=== PATIENT | female | born 1985 | race Caucasian/White ===

== ENCOUNTER 2019-03-09 12:39 | Emergency (ER) | payer MEDICAID, OTHER ==
[2019-03-09 12:40] VITALS: BMI 24.5
--- NOTE | 2019-03-09 12:58 | ED PDOC ---
HPI: Female Pain Time Seen by Provider: 03/09/19 12:52 Chief Complaint (Nursing): Female Genitourinary History Per: Patient Onset/Duration Of Symptoms: Days (1) Additional Complaint(s): Referred from clinic to r/o possible ectopic . Pt denies abd pain. No vaginal bleeding. H/o ectopic 2001. LMP 5 weeks ago Abnormal Vaginal Bleeding: No Past Medical History Vital Signs: Last Vital Signs Temp 98.2 F 03/09/19 12:47 Pulse 102 H 03/09/19 12:47 Resp 19 03/09/19 12:47 BP 162/127 H 03/09/19 12:47 Pulse Ox 98 03/09/19 12:47 Primary Care Provider: Christiano Romo - Medical History PMH: Anxiety, HTN Denies: Chronic Kidney Disease Other PMH: Ectopic - Family History Family History: States: Unknown Family Hx - Home Medications Home Medications: Ambulatory Orders Medication Instructions Recorded Acetaminophen [Tylenol] 650 mg PO Q6 PRN #40 tab 12/11/14 Azithromycin [Zithromax] 250 mg PO DAILY #4 tab 03/01/18 Fluticasone Nasal [Flonase] 2 spr NS DAILY #1 spr 03/01/18 Ibuprofen [Motrin] 600 mg PO Q6H PRN #20 tab 03/01/18 Lisinopril [Zestril] 5 mg PO DAILY 03/01/18 - Allergies Allergies/Adverse Reactions: Allergies Allergy/AdvReac Type Severity Reaction Status Date / Time No Known Allergies Allergy Verified 12/10/14 19:28 Review of Systems Gastrointestinal: Negative for: Abdominal Pain Genitourinary Female: Negative for: Vaginal Bleeding Physical Exam - Physical Exam Appears: Positive for: Non-toxic, No Acute Distress Gastrointestinal/Abdominal: Positive for: Bowel Sounds, Soft. Negative for: Tenderness Pelvic Exam: Positive for: External Exam Normal, No Masses. Negative for: Active Bleeding, Mass, Tender Adnexa - Laboratory Results Result Diagrams: 03/09/19 14:23 03/09/19 14:23 - ECG O2 Sat by Pulse Oximetry: 98 Disposition - Clinical Impression Clinical Impression: Intrauterine - Patient ED Disposition Is Patient to be Admitted: No Counseled Patient/Family Regarding: Studies Performed, Diagnosis, Need For Followup - Disposition [facility]errals[facility] Disposition: Routine/Home Disposition Time: 14:34 Condition: FAIR Instructions: - The First Month, - The Second Month Forms: [employer] (Bangladeshi)
--- NOTE | 2019-03-09 14:26 | US ---
Date of service: 03/09/2019 PROCEDURE: OB Pelvic Ultrasound HISTORY: r/o ectopic LMP: 02/03/2019 COMPARISON: None available. FINDINGS: UTERUS: Single intrauterine gestational sac. Gestational sac diameter measures 0.31 cm too small to characterize gestational age. Yolk sac and pole are not visualized. Cherelle-gestational hemorrhage: None. Uterus measures 9.0 x 5.7 x 4.2 cm cm. Anteverted and bulky. There is a 5 x 5 x 5 mm well-circumscribed round hypoechoic anterior submucosal lesion in the lower uterine segment which may represent a cyst or cystic change in submucosal fibroid. CERVIX: Long and closed. There is a 9 x 8 x 7 mm hypoechoic lesion in the anterior cervix which may represent a complicated nabothian cyst or cervical intramural fibroid. RIGHT OVARY: Measures 3.0 x 3.6 x 2.1 cm. No mass. Normal flow. There is a 2.4 x 1.9 x 1.9 cm corpus luteum cyst. LEFT OVARY: Measures 2.9 x 1.5 x 1.5 cm. No mass. Normal flow. FREE FLUID: There is small amount of free fluid in the cul-de-sac and bilateral adnexa. OTHER FINDINGS: None. IMPRESSION: 1. Single live intrauterine gestational sac too small to accurately characterize gestational age. Yolk sac and pole are not visualized on the current examination. Clinical and ultrasound follow-up is recommended to confirm viability. 2. 9 x 8 x 7 mm presumable complicated nabothian cyst versus cervical intramural fibroid in the anterior cervix. 3. 5 mm anterior submucosal cyst versus cystic change in fibroid in the lower uterine segment. 4. Small amount of free fluid in the cul-de-sac and bilateral adnexa of uncertain etiology and clinical significance. Clinical follow-up is advised.
[2019-03-09 14:29] LABS: BASO % 0.3 % (0.0-2.0); EOS # 0.2 K/uL (0.0-0.7); EOS % 2.7 % (0.0-4.0); HEMOGLOBIN 13.2 g/dL (12.0-16.0); LYMPH # 2.4 K/uL (1.0-4.3); MEAN CELL VOLUME 90.6 fl (81.0-99.0); MEAN CORPUSCULAR HEMOGLOBIN 31.1 pg (27.0-31.0); MEAN CORPUSCULAR HGB CONC 34.4 g/dL (33.0-37.0); MEAN PLATELET VOLUME 8.4 fl (7.2-11.7); MONO # 0.5 K/uL (0.0-0.8); MONO % 6.1 % (0.0-10.0); NEUT # 4.9 K/uL (1.8-7.0); NEUT % 60.9 % (50.0-75.0); RBC 4.24 Mil/uL (3.80-5.20); RED CELL DISTRIBUTION WIDTH 12.9 % (11.5-14.5); WHITE BLOOD COUNT 8.1 K/uL (4.8-10.8)
[2019-03-09 14:37] LABS: ALB/GLOB RATIO 1.3 (1.0-2.1); ALBUMIN 4.5 g/dL (3.5-5.0); ALT/SGPT 56 U/L (9-52); AST/SGOT 36 U/L (14-36); BLOOD UREA NITROGEN 12 mg/dl (7-17); CALCIUM 9.1 mg/dL (8.4-10.2); GFR NON-AFRICAN AMERICAN > 60
[2019-03-09 15:12] VITALS: BP 145/90; PULSE 90; RESP 18; TEMP 98.3; O2SAT 97
== END 2019-03-09 14:52 | disposition home or self-care (01) ==
LOC: H.ER 12:39
DX: Z33.1 Pregnant state, incidental (principal)